=== PATIENT | female | born 1985 | race Caucasian/White ===

== ENCOUNTER 2025-06-22 13:54 | Outpatient (CLI) | payer OTHER, SELFPAY ==
--- OUTSIDE RECORDS SUMMARY | 2006-05-30 10:30 | XMS_ITS | Continuity of Care Document ---
Author Organization [facility] Address [address] [place] [address] Phone Care Team Providers Care Barrel Liner Name Role Phone Mango Layton MD Unavailable Unavailable Advance Directives Directive Yes / No Effective Date File Name No Information Encounters Encounter Description Practice Location Reason(s) For Visit Diagnoses Date Provider Providers Copied on Encounter [facility], [address] [place], [place], [id number], [place] tel:[phone] [address] [facility] Professional No Information [address] [facility], [place], [place], [id number], [place]. tel:[phone] Family History Family Member Type Diagnosis Age At Onset No Information Payers Payer name Insurance type Covered republican ID Authoriza tion(s) [employer] SOI CI [id number] Social History Type Description Quantity Date Captured Comments Sex Female Smoking Status No Information Chief Complaint And Reason For Visit No Information Reason For Referral Reason For Referral No Information History Of Present Illness Encounter Date Complaint History Of Prese nt Illness No Information Functional Status Date Functional Assessmen t No Information Instructions Date Instruction Additional Infor mation No Information Assessments Type Assessment Date No Information Patient Care Teams Name Effective Dates (start - stop) Status Members No Information
--- OUTSIDE RECORDS SUMMARY | 2025-06-22 14:04 | XMS_ITS | Clinical Summary ---
Author Organization [facility] Address [address] [place] [address] Phone Care Team Providers Care Medical Billing And Coding Specialist Name Role Phone Provider, None Primary Care Provider Unavailabl e Allergies No known active allergies Medications * This document contains information received from the source organization and may not represent a complete record from that organization. hydrOXYzine (ATARAX) 50 MG Tablet Take 1 Tablet by mouth every 6 hours as needed for Anxiety (Mild anxiety - patient reported scale of 1-4 (May be administered together with PRN Librium)). 90 Tablet 3 Active nicotine (NICODERM CQ) 21 MG/24HR PATCH 24 HR 1 Patch by Transdermal route daily as needed for Other (Nicotine dependency). 3 Patch 3 Active ondansetron (ZOFRAN) 4 MG/2ML Solution 2 mL by Intravenous route every 6 hours as needed for Nausea - 1st line. 84 mL 3 Active senna 8.6 MG Tablet Take 2 Tablets by mouth nightly as needed for Constipation - 1st line. 30 Tablet 3 Active Active Problems Problem Noted Date Diagnosed Date HLD (hyperlipidemia) 02/15/2023 Tobacco abuse 02/15/2023 Methamphetamine abuse 02/15/2023 Fentanyl dependence 02/15/2023 Withdrawal from methamphetamine 02/15/2023 Cellulitis of left lower extremity 02/15/2023 Bowel obstruction 08/13/2014 Encounters Date Type Department Care Team Description 06/11/2025 Transcribe Orders [facility] Scheduling [address] [place] [address] Duane Adams Encounter for supervision of other normal , second trimester (Primary Dx) from Last 3 Months Family History Medical History Relation Name Comments Hypertension Father Breast Cancer Mother Diabetes Mother Hypertension Mother Relation Name Status Comments Father Mother Social History Tobacco Use Types Packs/Day Years Used Date Smoking Tobacco: Former Cigarettes 1 8.4 S tarted: 02/2017 Smokeless Tobacco: Current Tobacco Cessation:Ready to Q uit: No; Counseling Given: Yes Alcohol Use Standard Drinks/Week Comments Not Currently 0 (1 standard drink = 0.6 oz pur e alcohol) Maybe on a special occasion Sexually Active Control Partners Comments Not Currently Male Comments No Sex and Gender Information Value Date Recorded Sex Assigned at Not on file Legal Sex Female 7:58 PM CDT Gender Identity Not on file Sexual Orientation Not on file Last Filed Vital Signs Vital Sign Reading Time Taken Comments Blood Pressure 172/93 02/20/2023 12:00 AM CDT Pulse 65 02/20/2023 12:00 AM CDT Temperature 36.4 C (97.6 F) 02/20/2023 12:00 AM CDT Respiratory Rate 18 02/20/2023 12:00 AM CDT Oxygen Saturation 99% 02/20/2023 12:00 AM CDT Inhaled Oxygen Concentration - - Weight 99.8 kg (220 lb) 02/15/2023 11:26 AM CDT Height 157.5 cm (5' 2) 02/15/2023 11:26 AM CDT Body Mass Index 40.24 02/15/2023 11:26 AM CDT Plan of Treatment Upcoming Encounters Date Type Department Care Team (Late st Contact Info) Description 06/23/2025 1:00 PM PIECE JOBBER Appointment [facility] Ultrasound [address] [place] [address] Duane Adams [address] [place] [address] [address] Discharge Disposition: Discharged to home or Selfcare Health Maintenance Due Date Last Done Comments Hepatitis C Virus (HCV) Screening 1985 Mammogram 1985 TdaP Immunization 1985 Hepatitis B Immunization (1 of 3 - 19+ 3-dose series) 2004 Pap Smear 2006 Human Papillomavirus (HPV) Immunization (1 - 3-dose SCDM series) 2012 Cervical Cancer Screening (CCS) 2015 HPV/Cotest 2015 Influenza Immunization (#1) 2025 SARS-COV-2 Immunization (2 - season) 2025 02/06/2021 Discussion re Starting/Frequ ency of Mammograms 2025 Respiratory Syncytial Virus (RSV) Immunization (Adult) (1 - 1-dose 75+ series) 2060 Meningococcal Immunization (ACWY) Aged Out No longer eligible based on patient's age to complete this topic Pneumococcal Immunization Combined Aged Out No longer eligible based on patient's age to complete this topic Rotavirus Immunization Aged Out No lo nger eligible based on patient's age to complete this topic Additional Health Concerns Infection Onset Date Last Indicated MRSA 02/15/2023 02/16/2023 Insurance MEDICAID [facility] Advance Directives * Full Code (Latest Code Status on File) Date Activated Date Inactivated Comments 02/16/2023 2:03 PM 02/20/2023 5:48 PM CPR-Full Edith tment: FULL ARREST: Attempt Resuscitation/CPR wit intubation and mechanical ventilation. PRE-ARREST: Use entire range of life support measures to stabilize the patient. Care Teams Medical Billing And Coding Specialist Relationship Specialty Start Date End Date Provider, None [place] PCP - General 02/16/23
--- OUTSIDE RECORDS SUMMARY | 2025-06-22 14:04 | XMS_ITS | Clinical Summary ---
Author Organization [facility] Address [address] [place] [address] Care Team Providers Care Acid Tank Liner Name Role Phone Unavailable Primary Care Provider Unavailabl e Social History Tobacco Use Types Packs/Day Years Used Date Smoking Tobacco: Never Assessed Comments Unknown Sex and Gender Information Value Date Recorded Sex Assigned at Not on file Legal Sex Female 4:41 PM CDT Gender Identity Not on file Sexual Orientation Not on file Plan of Treatment Health Maintenance Due Date Last Done Comments Cervical Cancer Screening Pa p Smear (Age 30 to 64) Every 3 Years 1985 Annual Physical 1988 Hepatitis C 2003 DTaP, Tdap and Td Vaccines ( 1 - Tdap) 2004 Hepatitis B Vaccines (1 of 3 - 19+ 3-dose series) 2004 HPV Vaccines (1 - 3-dose SCD M series) 2012 Cervical Cancer Screening Pa p with HPV Testing (Age 30 to 64) Every 5 Years 2015 Cervical Cancer Screening with HPV 2015 COVID-19 Vaccine (2024-2 6 season) 2025 Mammogram Screening 2025 Influenza Adult (#1) 2025 Hepatitis A Vaccines Aged Out No long er eligible based on patient's age to complete this topic Meningococcal B Vaccine Aged Out No l onger eligible based on patient's age to complete this topic Meningococcal Vaccine Aged Out No one[place] anthony eligible based on patient's age to complete this topic Pneumococcal Vaccine: Pediat rics (0 to 5 Years) and At-Risk Patients (6 to 49 Years) Aged Out No longer eligible b ased on patient's age to complete this topic RSV Immunizations Under 20 Months Aged Out No longer eligible based on patient's age to complete this topic Advance Directives Documents on File Type Date Recorded Patient [employer] Expl anation Advance Directives and Living Will 10/04/2018 12:00 AM ADVANCED DIRECTIVES Advance Directives and Living Will 02/17/2016 12:00 AM ADVANCED DIRECTIVES
[2025-06-25 15:46] LABS: TB Skin Test Site Left Arm
[2025-06-25 15:47] LABS: TB Skin Test Interpretation Unable to Read (Negative)
== END 2025-06-22 13:55 | disposition home or self-care (01) ==
LOC: CHSLAB 13:56
PROVIDERS: PCP Nurse Practitioner Family; Visit Provider Nurse Practitioner Family
DX: Z13.9 Encounter for screening, unspecified (principal)
CPT/HCPCS: 36415; 86580